=== PATIENT | male | born 1960 | race Caucasian/White ===

== ENCOUNTER 2016-04-26 18:27 | Emergency (ER) | payer BC ==
[2016-04-26 18:36] VITALS: BP 148/92; PULSE 87; TEMP 97.7; BMI 24.1
--- NOTE | 2016-04-26 19:30 | PDOC ---
History of Present Illness - General Chief Complaint: Eye Problem Stated Complaint: "SOMETHING IN MY EYE" Time Seen by Provider: 04/26/16 19:18 History Source: Patient Exam Limitations: No Limitations - History of Present Illness Initial Comments: 04/26/16 19:24 CC I have something in my left eye x 2 week; seen by urgent care referred to eye MD could not be seen until june Timing/Duration: 1 week Severity: mild Associated Symptoms: denies: chest pain, cough, fever/chills Past History - Past Medical History Allergies/Adverse Reactions: Allergies Allergy/AdvReac Type Severity Reaction Status Date / Time No Known Drug Allergies Allergy Verified 04/26/16 18:32 Home Medications: Ambulatory Orders Clonazepam 0.5 mg PO BID PRN #10 tablet 05/20/13 No Home Medications 0 dose .ROUTE UTDICT 05/20/13 Anemia: No Asthma: No Cancer: No Cardiac Disorders: No CVA: No COPD: No CHF: No Dementia: No Diabetes: No GI Disorders: No Disorders: No HTN: No Hypercholesterolemia: Yes Liver Disease: No Seizures: No Thyroid Disease: No - Immunization History Immunization Up to Date: Yes - Psycho/Social/Smoking Cessation Hx Anxiety: Yes Suicidal Ideation: No Smoking History: Never smoked Have you smoked in the past 12 months: No Hx Alcohol Use: No Drug/Substance Use Hx: No Substance Use Type: None Hx Substance Use Treatment: No Review of Systems - Review of Systems Constitutional: No: Chills, Fever, Malaise HEENTM: Yes: Eye Pain, Tearing, Recent change in vision. No: Blurred Vision, Ear Discharge Respiratory: No: Symptoms reported Cardiac (ROS): No: Symptoms Reported *Physical Exam - Vital Signs Last Vital Signs Temp Pulse Resp BP Pulse Ox 97.7 F 87 16 148/92 97 04/26/16 18:32 04/26/16 18:32 04/26/16 18:32 04/26/16 18:32 04/26/16 18:32 - Physical Exam General Appearance: Yes: Appropriately Dressed. No: Apparent Distress HEENT: positive: TMs Normal, Pharynx Normal, Other (eyewith florescin stain note FB in left eye at medial superior aspect left eye; 20/25 oU, OD, OS) Respiratory/Chest: positive: Lungs Clear Medical Decision Making - Medical Decision Making 04/26/16 19:[address] Herron, said was available for ev tomorrow but states can go until tuesday; dr herron said his partner will see pt on at 8;30 am *DC/Admit/Observation/Transfer Diagnosis at time of Disposition: Foreign body of left eye Qualifiers: Encounter type: initial encounter Qualified Code(s): T15.92XA - Foreign body on external eye, part unspecified, left eye, initial encounter - Discharge Dispostion Disposition: HOME Condition at time of disposition: Stable Admit: No - Referrals Referrals: Earle Pedraza MD [Primary Care Provider] - Shahab Herron MD [Staff Physician] - - Patient Instructions Additional Instructions: Please call and see Dr Herron or his partner on Tuesday at 8:30
== END 2016-04-26 19:48 | disposition home or self-care (01) ==
LOC: JERFT 18:27
DX: T15 Foreign body on external eye (principal); S00.25 Superficial foreign body of eyelid and periocular area; X58.XXXD Exposure to other specified factors, subsequent encounter
CPT/HCPCS: 99281-25